=== PATIENT | female | born 1970 | race Caucasian/White ===

== ENCOUNTER → 2017-05-15 | Outpatient (CLI) | payer OTHER ==
[~2017-05-15] MED LIST: GADOBUTROL 10 MMOL/10 ML VIAL ONE
== END | disposition home or self-care (01) ==
LOC: CFH 09:01
PROVIDERS: ATTEND Internal Medicine
DX: K76.89 Other specified diseases of liver (principal)
CPT/HCPCS: 74183; A9585

== ENCOUNTER 2017-06-17 06:51 | Day surgery (SDC) | payer OTHER ==
[~2017-06-17] VITALS: Ht 160 cm; Wt 84.3 kg
[2017-06-17] MEDS ORDERED: LACTATED RINGERS 1,000 ML IV SCH (07:39)
[2017-06-17 07:42] VITALS: BP 117/83
[2017-06-17 08:21] LABS: HCG UR SG 1.019 (1.003-1.030)
[2017-06-17] MEDS ORDERED: FLUT1DIS5 IH (08:21)
[2017-06-17] MEDS ORDERED: LEVO150T5 PO (08:21)
[2017-06-17] MEDS ORDERED: CEFAZOLIN 1,000 MG ONE (09:05)
[2017-06-17] MEDS ORDERED: DEXAMETHASONE 4 MG/ML, 1ML ONE (09:05)
[2017-06-17] MEDS ORDERED: ONDANSETRON 2MG/ML, 2ML ONE (09:05)
[2017-06-17] MEDS ORDERED: PROPOFOL 10 MG/ML, 20ML ONE (09:05)
[2017-06-17] MEDS ORDERED: OXYcodone 5 MG/5 ML ORAL.SOL UDC PO PRN (09:30)
[2017-06-17] MEDS ORDERED: morphine SULFATE 10 MG/ML, 1ML IV PRN (09:30)
[2017-06-17] MEDS ORDERED: MIDAZOLAM 1 MG/ML, 2ML IV PRN (09:30)
[2017-06-17] MEDS ORDERED: ACETAMINOPHEN 325 MG TABLET PO PRN (09:30)
[2017-06-17] MEDS ORDERED: HYDROcodone/APAP 7.5-325MG/15ML UDC PO PRN (09:30)
[2017-06-17] MEDS ORDERED: FENTANYL PF 100 MCG/2ML IV PRN (09:30)
[2017-06-17] MEDS ORDERED: HYDROmorphone 1 MG/ML, 1ML IV PRN (09:30)
[2017-06-17] MEDS ORDERED: KETOROLAC 30 MG/1 ML IV PRN ×2 (09:30)
[2017-06-17] MEDS ORDERED: MEPERIDINE/PF 25MG/0.5ML IVPush PRN (09:30)
== END 2017-06-17 10:30 | disposition home or self-care (01) ==
LOC: OUT 06:51
PROVIDERS: ATTEND Internal Medicine
DX: C20 Malignant neoplasm of rectum (principal); Z85.850 Personal history of malignant neoplasm of thyroid; Z98.890 Other specified postprocedural states
CPT/HCPCS: 45341; 81025; J0690; J1100; J2405; J2704; J7120

== ENCOUNTER 2017-08-19 17:04 | Inpatient (IN) | payer OTHER ==
[~2017-08-19] VITALS: Ht 160 cm; Wt 83.8 kg
[~2017-08-19 17:04] MED LIST changes: +ALBU8.5H8 INH; +FLUT1DIS5 IH; -GADOBUTROL 10 MMOL/10 ML VIAL ONE; +LEVO150T5 PO; +OXYC-302 PO
[2017-08-19] MEDS ORDERED: ONDANSETRON 2MG/ML, 2ML IVPush ONE (17:30)
[2017-08-19] MEDS ORDERED: MORPHINE SULFATE 4 MG/ML, 1ML IVPush PRN ×2 (17:30→19:00)
[2017-08-19] MEDS ORDERED: SODIUM CHLORIDE 0.9% 1,000 ML IV ONE (17:50)
[2017-08-19 17:53] LABS: BASOPHILS # (AUTO) 0.05 x10^3/uL (0-0.1); BASOPHILS % (AUTO) 0 % (0-1); EOSINOPHILS # (AUTO) 0.39 x10^3/uL (0-0.4); EOSINOPHILS % (AUTO) 3 % (1-7); LYMPHOCYTES # (AUTO) 2.34 x10^3/uL (1-3.4); LYMPHOCYTES % (AUTO) 17 % (22-44); MD NO; MEAN CORPUSCULAR HEMOGLOBIN 30.5 pg (27.0-34.8); MEAN CORPUSCULAR HGB CONC 33.7 g/dL (32.4-35.8); MEAN CORPUSCULAR VOLUME 90.3 fL (80-100); MEAN PLATELET VOLUME 8.6 fL (7.4-10.4); MONOCYTES # (AUTO) 0.85 x10^3/uL (0.2-0.8); MONOCYTES % (AUTO) 6 % (2-9); NEUTROPHILS # (AUTO) 10.45 x10^3/uL (1.8-6.8); NEUTROPHILS % (AUTO) 74 % (42-75); PLATELET COUNT 397 x10^3/uL (130-400); RED BLOOD COUNT 5.55 x10^6/uL (3.82-5.3); RED CELL DISTRIBUTION WIDTH 13.7 % (9.6-15.2)
[2017-08-19] MEDS ORDERED: SODIUM CHLORIDE FLUSH 10ML SYR IVF ONE (18:00)
[2017-08-19] MEDS ORDERED: SODIUM CHLORIDE 0.9% 1,000ML IVBOLUS ONE (18:00)
[2017-08-19 18:06] LABS: ALANINE AMINOTRANSFERASE 76 U/L (12-78); ALBUMIN 3.9 g/dL (3.4-5.0); ANION GAP 10 mmol/L (5-15); CALCIUM 10.8 mg/dL (8.5-10.1); CHLORIDE 95 mmol/L (98-107)
[2017-08-19 18:07] LABS: ALKALINE PHOSPHATASE 65 U/L (45-117); BILIRUBIN,TOTAL 1.1 mg/dL (0.2-1.0); TOTAL PROTEIN 8.4 g/dL (6.4-8.2)
[2017-08-19] MEDS ORDERED: OMNIPAQUE 350 MG/ML, 100ML BOTTLE ONE (18:22)
[2017-08-19] MEDS ORDERED: LORazepam 2 MG/ML, 1ML IVPush STA (18:44)
[2017-08-19] MEDS ORDERED: D5%-0.45% NACL 1,000 ML IV ONE (18:58)
[2017-08-19] MEDS ORDERED: SODIUM CHLORIDE FLUSH 10ML SYR IVF PRN (19:00)
[2017-08-19] MEDS ORDERED: LORazepam 2 MG/ML, 1ML ONE (19:43)
[2017-08-19 20:15] VITALS: BP 125/83
[2017-08-19] MEDS: CALCIUM CARBONATE 500 MG TABLET PO PRN (21:56)
[2017-08-19] MEDS ORDERED: ONDANSETRON 2MG/ML, 2ML IV PRN (22:00)
[2017-08-19] MEDS: D5%-0.45NACL+KCL 20MEQ 1,000 ML IV SCH (22:54)
[2017-08-19] MEDS: MORPHINE SULFATE 4 MG/ML, 1ML IV PRN (23:03)
[2017-08-20 01:43] VITALS: BP 125/83
[2017-08-20 03:28] VITALS: BP 124/84
[2017-08-20 06:52] VITALS: BP 123/81
[2017-08-20] MEDS: D5%-0.45NACL+KCL 20MEQ 1,000 ML IV SCH ×2 (10:58→21:18)
[2017-08-20] MEDS: ENOXAPARIN 40 MG/0.4 ML SQ SCH (11:37)
[2017-08-20] MEDS: LORazepam 2 MG/ML, 1ML IVPush PRN (11:37)
[2017-08-20] MEDS ORDERED: ALBUTEROL SULFATE IH PRN (12:00)
[2017-08-20 14:25] VITALS: BP 125/80
[2017-08-20 18:08] LABS: MICROSCOPIC INDICATED
[2017-08-20 18:20] LABS: CULTURE INDICATED? NO
[2017-08-20 19:46] VITALS: BP 126/83
[2017-08-20] MEDS: MORPHINE SULFATE 4 MG/ML, 1ML IV PRN (20:25)
[2017-08-21 01:38] VITALS: BP 108/71
[2017-08-21 05:29] LABS: BASOPHILS # (AUTO) 0.04 x10^3/uL (0-0.1); BASOPHILS % (AUTO) 0 % (0-1); EOSINOPHILS # (AUTO) 0.48 x10^3/uL (0-0.4); EOSINOPHILS % (AUTO) 5 % (1-7); LYMPHOCYTES # (AUTO) 1.79 x10^3/uL (1-3.4); LYMPHOCYTES % (AUTO) 18 % (22-44); MD NO; MEAN CORPUSCULAR HEMOGLOBIN 30.6 pg (27.0-34.8); MEAN CORPUSCULAR HGB CONC 34.1 g/dL (32.4-35.8); MEAN CORPUSCULAR VOLUME 89.8 fL (80-100); MEAN PLATELET VOLUME 8.1 fL (7.4-10.4); MONOCYTES % (AUTO) 8 % (2-9); NEUTROPHILS # (AUTO) 7.09 x10^3/uL (1.8-6.8); NEUTROPHILS % (AUTO) 70 % (42-75); PLATELET COUNT 335 x10^3/uL (130-400); RED BLOOD COUNT 4.48 x10^6/uL (3.82-5.3); RED CELL DISTRIBUTION WIDTH 13.6 % (9.6-15.2)
[2017-08-21 05:33] LABS: CHLORIDE 101 mmol/L (98-107)
[2017-08-21 05:44] LABS: ALANINE AMINOTRANSFERASE 84 U/L (12-78); ALKALINE PHOSPHATASE 51 U/L (45-117); ANION GAP 8 mmol/L (5-15); BILIRUBIN,TOTAL 1.1 mg/dL (0.2-1.0); CALCIUM 9.1 mg/dL (8.5-10.1); CREATININE 0.74 mg/dL (0.55-1.02); TOTAL PROTEIN 6.5 g/dL (6.4-8.2)
[2017-08-21] MEDS: LEVOTHYROXINE 150 MCG TABLET PO SCH (05:52)
[2017-08-21] MEDS: D5%-0.45NACL+KCL 20MEQ 1,000 ML IV SCH (06:17)
[2017-08-21 08:06] VITALS: BP 125/84
[2017-08-21] MEDS: FLUTICASONE/VILANTEROL 200-25MCG/INH INH SCH (09:00)
[2017-08-21] MEDS: SODIUM CHLORIDE FLUSH 10ML SYR IVF SCH ×2 (09:00→20:34)
[2017-08-21] MEDS: ENOXAPARIN 40 MG/0.4 ML SQ SCH (11:30)
[2017-08-21 13:33] VITALS: BP 121/77
[2017-08-21 19:00] VITALS: BP 120/81
[2017-08-21] MEDS: MORPHINE SULFATE 4 MG/ML, 1ML IV PRN (21:16)
[2017-08-22 01:11] VITALS: BP 104/68
[2017-08-22] MEDS: LEVOTHYROXINE 150 MCG TABLET PO SCH (05:26)
[2017-08-22 07:11] VITALS: BP 105/74
[2017-08-22] MEDS: FLUTICASONE/VILANTEROL 200-25MCG/INH INH SCH (09:00)
[2017-08-22] MEDS: SODIUM CHLORIDE FLUSH 10ML SYR IVF SCH ×2 (10:32→20:52)
[2017-08-22] MEDS: METOCLOPRAMIDE 5 MG/ML, 2ML IV SCH ×3 (10:32→23:00)
[2017-08-22] MEDS: ENOXAPARIN 40 MG/0.4 ML SQ SCH (11:43)
[2017-08-22] MEDS: SIMETHICONE 80 MG CHEW TAB PO PRN ×2 (13:00→18:39)
[2017-08-22 14:18] VITALS: BP 106/71
[2017-08-22] MEDS ORDERED: ACETAMINOPHEN 325 MG TABLET PO PRN (14:30)
[2017-08-22] MEDS: LORazepam 2 MG/ML, 1ML IVPush PRN ×2 (16:29→23:00)
[2017-08-22 21:12] VITALS: BP 132/79
[2017-08-23 03:16] VITALS: BP 111/77
[2017-08-23] MEDS: SIMETHICONE 80 MG CHEW TAB PO PRN (03:37)
[2017-08-23] MEDS: CALCIUM CARBONATE 500 MG TABLET PO PRN (04:15)
[2017-08-23 05:14] LABS: BASOPHILS # (AUTO) 0.03 x10^3/uL (0-0.1); BASOPHILS % (AUTO) 0 % (0-1); EOSINOPHILS % (AUTO) 1 % (1-7); LYMPHOCYTES # (AUTO) 1.37 x10^3/uL (1-3.4); LYMPHOCYTES % (AUTO) 15 % (22-44); MD NO; MEAN CORPUSCULAR HEMOGLOBIN 30.4 pg (27.0-34.8); MEAN CORPUSCULAR HGB CONC 34.1 g/dL (32.4-35.8); MEAN CORPUSCULAR VOLUME 89.2 fL (80-100); MEAN PLATELET VOLUME 8.6 fL (7.4-10.4); MONOCYTES # (AUTO) 0.96 x10^3/uL (0.2-0.8); MONOCYTES % (AUTO) 11 % (2-9); NEUTROPHILS # (AUTO) 6.45 x10^3/uL (1.8-6.8); NEUTROPHILS % (AUTO) 72 % (42-75); PLATELET COUNT 404 x10^3/uL (130-400); RED BLOOD COUNT 5.03 x10^6/uL (3.82-5.3); RED CELL DISTRIBUTION WIDTH 13.3 % (9.6-15.2)
[2017-08-23 05:45] LABS: ANION GAP 8 mmol/L (5-15); CALCIUM 10.7 mg/dL (8.5-10.1); CHLORIDE 95 mmol/L (98-107)
[2017-08-23 05:47] LABS: CREATININE 0.82 mg/dL (0.55-1.02)
[2017-08-23] MEDS: LEVOTHYROXINE 150 MCG TABLET PO SCH (06:00)
[2017-08-23] MEDS: LORazepam 2 MG/ML, 1ML IVPush PRN ×2 (06:16→19:50)
[2017-08-23] MEDS: METOCLOPRAMIDE 5 MG/ML, 2ML IV SCH ×4 (06:16→22:03)
[2017-08-23] MEDS ORDERED: BENZOCAINE AEROSOL SPRAY 20%, 60ML TP ONE (06:30)
[2017-08-23] MEDS: SODIUM CHLORIDE FLUSH 10ML SYR IVF SCH ×2 (07:53→19:52)
[2017-08-23 08:10] VITALS: BP 121/84
[2017-08-23] MEDS: FLUTICASONE/VILANTEROL 200-25MCG/INH INH SCH (08:41)
[2017-08-23] MEDS ORDERED: GASTROGRAFIN 120 ML SOLN PO ONE (10:55)
[2017-08-23] MEDS: ENOXAPARIN 40 MG/0.4 ML SQ SCH (11:37)
[2017-08-23 14:30] VITALS: BP 108/70
[2017-08-23] MEDS: D5%-0.45NACL+KCL 20MEQ 1,000 ML IV SCH (16:03)
[2017-08-23 20:00] VITALS: BP 143/86
[2017-08-24] MEDS: D5%-0.45NACL+KCL 20MEQ 1,000 ML IV SCH ×3 (01:35→20:26)
[2017-08-24 01:51] VITALS: BP 106/75
[2017-08-24] MEDS: LORazepam 2 MG/ML, 1ML IVPush PRN ×3 (04:30→23:02)
[2017-08-24] MEDS: METOCLOPRAMIDE 5 MG/ML, 2ML IV SCH ×4 (04:31→22:18)
[2017-08-24 05:23] LABS: BASOPHILS # (AUTO) 0.03 x10^3/uL (0-0.1); BASOPHILS % (AUTO) 0 % (0-1); EOSINOPHILS # (AUTO) 0.12 x10^3/uL (0-0.4); EOSINOPHILS % (AUTO) 1 % (1-7); LYMPHOCYTES # (AUTO) 1.88 x10^3/uL (1-3.4); LYMPHOCYTES % (AUTO) 20 % (22-44); MD NO; MEAN CORPUSCULAR HEMOGLOBIN 30.9 pg (27.0-34.8); MEAN CORPUSCULAR HGB CONC 34.3 g/dL (32.4-35.8); MEAN CORPUSCULAR VOLUME 90.1 fL (80-100); MEAN PLATELET VOLUME 8.7 fL (7.4-10.4); MONOCYTES # (AUTO) 1.04 x10^3/uL (0.2-0.8); MONOCYTES % (AUTO) 11 % (2-9); NEUTROPHILS # (AUTO) 6.55 x10^3/uL (1.8-6.8); NEUTROPHILS % (AUTO) 68 % (42-75); PLATELET COUNT 401 x10^3/uL (130-400); RED BLOOD COUNT 4.92 x10^6/uL (3.82-5.3); RED CELL DISTRIBUTION WIDTH 13.4 % (9.6-15.2)
[2017-08-24 05:31] LABS: CHLORIDE 96 mmol/L (98-107)
[2017-08-24 05:56] LABS: ANION GAP 10 mmol/L (5-15); CALCIUM 8.2 mg/dL (8.5-10.1); CREATININE 0.87 mg/dL (0.55-1.02)
[2017-08-24] MEDS: LEVOTHYROXINE 150 MCG TABLET PO SCH (07:49)
[2017-08-24 08:33] VITALS: BP 112/78
[2017-08-24] MEDS: SALMETEROL INH SCH (09:00)
[2017-08-24] MEDS: FLUTICASONE INH SCH (09:00)
[2017-08-24] MEDS: SODIUM CHLORIDE FLUSH 10ML SYR IVF SCH ×2 (10:33→20:33)
[2017-08-24] MEDS: ENOXAPARIN 40 MG/0.4 ML SQ SCH (12:03)
[2017-08-24 13:36] VITALS: BP 107/73
[2017-08-24 20:09] VITALS: BP 102/66
[2017-08-25 03:25] VITALS: BP 102/64
[2017-08-25] MEDS: D5%-0.45NACL+KCL 20MEQ 1,000 ML IV SCH ×3 (04:35→23:10)
[2017-08-25] MEDS: METOCLOPRAMIDE 5 MG/ML, 2ML IV SCH ×4 (04:35→22:51)
[2017-08-25 04:55] LABS: ANION GAP 6 mmol/L (5-15); CALCIUM 8.5 mg/dL (8.5-10.1); CHLORIDE 99 mmol/L (98-107); CREATININE 0.75 mg/dL (0.55-1.02)
[2017-08-25 05:01] LABS: BASOPHILS # (AUTO) 0.04 x10^3/uL (0-0.1); BASOPHILS % (AUTO) 1 % (0-1); EOSINOPHILS # (AUTO) 0.18 x10^3/uL (0-0.4); EOSINOPHILS % (AUTO) 2 % (1-7); LYMPHOCYTES # (AUTO) 1.63 x10^3/uL (1-3.4); LYMPHOCYTES % (AUTO) 19 % (22-44); MD NO; MEAN CORPUSCULAR HEMOGLOBIN 30.5 pg (27.0-34.8); MEAN CORPUSCULAR HGB CONC 33.7 g/dL (32.4-35.8); MEAN CORPUSCULAR VOLUME 90.6 fL (80-100); MEAN PLATELET VOLUME 8.4 fL (7.4-10.4); MONOCYTES # (AUTO) 0.96 x10^3/uL (0.2-0.8); MONOCYTES % (AUTO) 11 % (2-9); NEUTROPHILS % (AUTO) 68 % (42-75); PLATELET COUNT 362 x10^3/uL (130-400); RED BLOOD COUNT 4.51 x10^6/uL (3.82-5.3); RED CELL DISTRIBUTION WIDTH 13.3 % (9.6-15.2)
[2017-08-25] MEDS: LEVOTHYROXINE 150 MCG TABLET PO SCH (05:48)
[2017-08-25 07:27] VITALS: BP 103/69
[2017-08-25] MEDS: SODIUM CHLORIDE FLUSH 10ML SYR IVF SCH ×2 (08:46→22:52)
[2017-08-25] MEDS: SALMETEROL INH SCH (09:00)
[2017-08-25] MEDS: FLUTICASONE INH SCH (09:00)
[2017-08-25] MEDS: ENOXAPARIN 40 MG/0.4 ML SQ SCH (12:33)
[2017-08-25 13:50] VITALS: BP 108/73
[2017-08-25 20:01] VITALS: BP 117/66
[2017-08-25] MEDS: LORazepam 2 MG/ML, 1ML IVPush PRN (20:13)
[2017-08-26] MEDS: LORazepam 2 MG/ML, 1ML IVPush PRN ×2 (02:32→20:55)
[2017-08-26 02:41] VITALS: BP 106/71
[2017-08-26] MEDS: METOCLOPRAMIDE 5 MG/ML, 2ML IV SCH ×4 (04:37→22:38)
[2017-08-26 05:06] LABS: BASOPHILS # (AUTO) 0.04 x10^3/uL (0-0.1); BASOPHILS % (AUTO) 1 % (0-1); EOSINOPHILS # (AUTO) 0.18 x10^3/uL (0-0.4); EOSINOPHILS % (AUTO) 3 % (1-7); LYMPHOCYTES # (AUTO) 1.56 x10^3/uL (1-3.4); LYMPHOCYTES % (AUTO) 24 % (22-44); MD NO; MEAN CORPUSCULAR HEMOGLOBIN 30.6 pg (27.0-34.8); MEAN CORPUSCULAR HGB CONC 33.8 g/dL (32.4-35.8); MEAN CORPUSCULAR VOLUME 90.5 fL (80-100); MEAN PLATELET VOLUME 8.1 fL (7.4-10.4); MONOCYTES # (AUTO) 0.89 x10^3/uL (0.2-0.8); MONOCYTES % (AUTO) 14 % (2-9); NEUTROPHILS # (AUTO) 3.82 x10^3/uL (1.8-6.8); NEUTROPHILS % (AUTO) 59 % (42-75); PLATELET COUNT 365 x10^3/uL (130-400); RED BLOOD COUNT 4.24 x10^6/uL (3.82-5.3); RED CELL DISTRIBUTION WIDTH 13.1 % (9.6-15.2)
[2017-08-26 05:27] LABS: CHLORIDE 103 mmol/L (98-107)
[2017-08-26 06:17] LABS: ANION GAP 10 mmol/L (5-15); CALCIUM 8.7 mg/dL (8.5-10.1); CREATININE 0.79 mg/dL (0.55-1.02)
[2017-08-26] MEDS: LEVOTHYROXINE 150 MCG TABLET PO SCH (06:35)
[2017-08-26] MEDS: D5%-0.45NACL+KCL 20MEQ 1,000 ML IV SCH ×3 (06:35→22:39)
[2017-08-26 07:25] VITALS: BP 100/66
[2017-08-26] MEDS: SALMETEROL INH SCH (09:00)
[2017-08-26] MEDS: FLUTICASONE INH SCH (09:00)
[2017-08-26] MEDS: SODIUM CHLORIDE FLUSH 10ML SYR IVF SCH ×2 (10:47→20:55)
[2017-08-26 13:17] VITALS: BP 111/73
[2017-08-26] MEDS: ENOXAPARIN 40 MG/0.4 ML SQ SCH (13:20)
[2017-08-26 20:43] VITALS: BP 107/71
[2017-08-27 01:29] VITALS: BP 112/71
[2017-08-27] MEDS: METOCLOPRAMIDE 5 MG/ML, 2ML IV SCH ×4 (04:54→22:51)
[2017-08-27] MEDS: LEVOTHYROXINE 150 MCG TABLET PO SCH (06:35)
[2017-08-27] MEDS: D5%-0.45NACL+KCL 20MEQ 1,000 ML IV SCH ×3 (06:36→17:25)
[2017-08-27 07:24] VITALS: BP 109/72
[2017-08-27] MEDS ORDERED: SCOPOLAMINE PATCH, 1.5MG PATCH.TD72 TD ONE (07:30)
[2017-08-27] MEDS ORDERED: OxyconTIN ER 10 MG TAB.ER PO ONE (07:30)
[2017-08-27] MEDS ORDERED: ONDANSETRON ODT 8 MG PO ONE (07:30)
[2017-08-27] MEDS ORDERED: MIDAZOLAM 1 MG/ML, 2ML ONE (07:58)
[2017-08-27] MEDS ORDERED: BUPIVACAINE/PF 0.25% ONE (07:58)
[2017-08-27] MEDS ORDERED: FENTANYL PF 250 MCG/5ML ONE (07:59)
[2017-08-27] MEDS ORDERED: SUCCINYLCHOLINE 20 MG/ML, 10ML ONE ×2 (08:01→08:08)
[2017-08-27] MEDS ORDERED: ROCURONIUM 10MG/ML,5ML ONE (08:01)
[2017-08-27] MEDS ORDERED: PROPOFOL 10 MG/ML, 20ML ONE (08:01)
[2017-08-27] MEDS ORDERED: METRONIDAZOLE PMX 500MG/100ML 100 ML ONE (08:03)
[2017-08-27] MEDS ORDERED: DEXAMETHASONE 4 MG/ML, 1ML ONE (08:08)
[2017-08-27] MEDS ORDERED: CEFAZOLIN 1,000 MG ONE (08:08)
[2017-08-27] MEDS: SODIUM CHLORIDE FLUSH 10ML SYR IVF SCH ×2 (09:00→22:54)
[2017-08-27] MEDS: FLUTICASONE INH SCH (09:00)
[2017-08-27] MEDS: SALMETEROL INH SCH (09:00)
[2017-08-27] MEDS ORDERED: SUGAMMADEX 200 MG/2 ML IVPush ONE (09:18)
[2017-08-27] MEDS ORDERED: MORPHINE SULFATE 4 MG/ML, 1ML IVPush PRN (10:00)
[2017-08-27] MEDS ORDERED: hydrALAzine 20 MG/ML, 1ML IV PRN (10:00)
[2017-08-27] MEDS ORDERED: ALBUTEROL SULFATE 2.5 MG/3 ML NPPB PRN (10:00)
[2017-08-27] MEDS ORDERED: MEPERIDINE/PF 25MG/0.5ML IVPush PRN (10:00)
[2017-08-27] MEDS ORDERED: LABETALOL 5MG/ML, 20ML IV PRN (10:00)
[2017-08-27] MEDS ORDERED: ONDANSETRON ODT 8 MG PO PRN (10:00)
[2017-08-27] MEDS ORDERED: MIDAZOLAM 1 MG/ML, 2ML IV PRN (10:00)
[2017-08-27] MEDS ORDERED: OXYcodone 5 MG/5 ML ORAL.SOL UDC PO PRN (10:00)
[2017-08-27] MEDS ORDERED: PROMETHAZINE 25 MG/ML, 1ML IV PRN (10:00)
[2017-08-27] MEDS ORDERED: PROMETHAZINE 12.5 MG SUPP PR PRN (10:00)
[2017-08-27] MEDS ORDERED: FENTANYL PF 100 MCG/2ML ONE (10:03)
[2017-08-27] MEDS ORDERED: OXYcodone 5 MG/5 ML ORAL.SOL UDC ONE (10:04)
[2017-08-27] MEDS: FENTANYL PF 100 MCG/2ML IV PRN ×2 (10:05→10:20)
[2017-08-27 13:38] VITALS: BP 111/63
[2017-08-27] MEDS ORDERED: DIPHENHYDRAMINE 50 MG/ML, 1ML IVPush PRN (15:30)
[2017-08-27] MEDS ORDERED: OXYcodone IR 5MG TABLET PO PRN (15:30)
[2017-08-27] MEDS ORDERED: HYDROmorphone 1 MG/ML, 1ML IVPush PRN (15:30)
[2017-08-27] MEDS ORDERED: LORazepam 1MG TABLET PO PRN (15:30)
[2017-08-27] MEDS ORDERED: LORazepam 2 MG/ML, 1ML IVPush PRN (15:30)
[2017-08-27] MEDS ORDERED: ONDANSETRON 2MG/ML, 2ML IV PRN (15:30)
[2017-08-27] MEDS ORDERED: CALCIUM CARBONATE 500 MG TAB.CHEW PO PRN (15:30)
[2017-08-27] MEDS ORDERED: DIPHENHYDRAMINE 25 MG CAPSULE PO PRN (15:30)
[2017-08-27] MEDS ORDERED: DEXAMETHASONE 4 MG/ML, 1ML IVPush PRN (15:30)
[2017-08-27] MEDS: IBUPROFEN 800 MG TABLET PO SCH ×2 (17:24→22:50)
[2017-08-27] MEDS: ACETAMINOPHEN 500 MG TABLET PO SCH ×2 (17:25→22:50)
[2017-08-27 18:37] VITALS: BP 106/71
[2017-08-28 02:00] VITALS: BP 108/70
[2017-08-28] MEDS: ACETAMINOPHEN 500 MG TABLET PO SCH ×4 (04:27→21:07)
[2017-08-28] MEDS: METOCLOPRAMIDE 5 MG/ML, 2ML IV SCH ×4 (04:28→21:07)
[2017-08-28] MEDS: ENOXAPARIN 40 MG/0.4 ML SQ SCH (04:28)
[2017-08-28 05:16] LABS: BASOPHILS # (AUTO) 0.02 x10^3/uL (0-0.1); BASOPHILS % (AUTO) 0 % (0-1); EOSINOPHILS # (AUTO) 0.07 x10^3/uL (0-0.4); EOSINOPHILS % (AUTO) 1 % (1-7); LYMPHOCYTES # (AUTO) 1.28 x10^3/uL (1-3.4); LYMPHOCYTES % (AUTO) 16 % (22-44); MD NO; MEAN CORPUSCULAR HEMOGLOBIN 30.4 pg (27.0-34.8); MEAN CORPUSCULAR HGB CONC 33.8 g/dL (32.4-35.8); MEAN CORPUSCULAR VOLUME 89.7 fL (80-100); MEAN PLATELET VOLUME 7.8 fL (7.4-10.4); MONOCYTES # (AUTO) 0.26 x10^3/uL (0.2-0.8); MONOCYTES % (AUTO) 3 % (2-9); NEUTROPHILS % (AUTO) 79 % (42-75); PLATELET COUNT 497 x10^3/uL (130-400); RED BLOOD COUNT 4.19 x10^6/uL (3.82-5.3); RED CELL DISTRIBUTION WIDTH 13.3 % (9.6-15.2)
[2017-08-28 05:17] LABS: CHLORIDE 103 mmol/L (98-107)
[2017-08-28 05:22] LABS: ANION GAP 9 mmol/L (5-15); CALCIUM 8.2 mg/dL (8.5-10.1); CREATININE 0.65 mg/dL (0.55-1.02)
[2017-08-28] MEDS: SIMETHICONE 80 MG CHEW TAB PO PRN ×2 (06:00→21:07)
[2017-08-28] MEDS: LEVOTHYROXINE 150 MCG TABLET PO SCH (06:08)
[2017-08-28 07:39] VITALS: BP 105/70
[2017-08-28] MEDS: IBUPROFEN 800 MG TABLET PO SCH ×3 (08:56→21:07)
[2017-08-28] MEDS: FLUTICASONE/VILANTEROL 200-25MCG/INH INH SCH (08:57)
[2017-08-28] MEDS: SODIUM CHLORIDE FLUSH 10ML SYR IVF SCH ×2 (08:57→21:08)
[2017-08-28] MEDS: D5%-0.45NACL+KCL 20MEQ 1,000 ML IV SCH (11:30)
[2017-08-28 13:24] VITALS: BP 105/69
[2017-08-28 20:28] VITALS: BP 109/73
[2017-08-29 01:36] VITALS: BP 108/71
[2017-08-29] MEDS: METOCLOPRAMIDE 5 MG/ML, 2ML IV SCH ×4 (04:48→22:36)
[2017-08-29] MEDS: ENOXAPARIN 40 MG/0.4 ML SQ SCH (04:49)
[2017-08-29] MEDS: ACETAMINOPHEN 500 MG TABLET PO SCH ×4 (04:49→21:08)
[2017-08-29 06:15] LABS: CHLORIDE 102 mmol/L (98-107)
[2017-08-29] MEDS: LEVOTHYROXINE 150 MCG TABLET PO SCH (06:21)
[2017-08-29 06:26] LABS: BASOPHILS # (AUTO) 0.02 x10^3/uL (0-0.1); BASOPHILS % (AUTO) 0 % (0-1); EOSINOPHILS # (AUTO) 0.17 x10^3/uL (0-0.4); EOSINOPHILS % (AUTO) 1 % (1-7); LYMPHOCYTES # (AUTO) 1.32 x10^3/uL (1-3.4); LYMPHOCYTES % (AUTO) 11 % (22-44); MD NO; MEAN CORPUSCULAR HEMOGLOBIN 30.7 pg (27.0-34.8); MEAN CORPUSCULAR HGB CONC 34.2 g/dL (32.4-35.8); MEAN CORPUSCULAR VOLUME 89.9 fL (80-100); MEAN PLATELET VOLUME 8.1 fL (7.4-10.4); MONOCYTES # (AUTO) 0.74 x10^3/uL (0.2-0.8); MONOCYTES % (AUTO) 6 % (2-9); NEUTROPHILS # (AUTO) 10.13 x10^3/uL (1.8-6.8); NEUTROPHILS % (AUTO) 82 % (42-75); PLATELET COUNT 435 x10^3/uL (130-400); RED BLOOD COUNT 4.02 x10^6/uL (3.82-5.3); RED CELL DISTRIBUTION WIDTH 13.5 % (9.6-15.2)
[2017-08-29 07:25] LABS: CREATININE 0.52 mg/dL (0.55-1.02)
[2017-08-29] MEDS: D5%-0.45NACL+KCL 20MEQ 1,000 ML IV SCH (07:30)
[2017-08-29 07:48] LABS: ANION GAP 8 mmol/L (5-15)
[2017-08-29 07:58] VITALS: BP 99/68
[2017-08-29] MEDS: FLUTICASONE/VILANTEROL 200-25MCG/INH INH SCH (09:00)
[2017-08-29] MEDS: IBUPROFEN 800 MG TABLET PO SCH ×3 (09:28→21:07)
[2017-08-29] MEDS: SODIUM CHLORIDE FLUSH 10ML SYR IVF SCH ×2 (09:29→21:08)
[2017-08-29 14:30] VITALS: BP 102/58
[2017-08-29 16:59] VITALS: BP 104/64
[2017-08-29 19:41] VITALS: BP 99/58
[2017-08-30 02:29] VITALS: BP 105/68
[2017-08-30] MEDS: D5%-0.45NACL+KCL 20MEQ 1,000 ML IV SCH (03:30)
[2017-08-30] MEDS: ACETAMINOPHEN 500 MG TABLET PO SCH ×2 (04:27→09:23)
[2017-08-30] MEDS: ENOXAPARIN 40 MG/0.4 ML SQ SCH (04:27)
[2017-08-30] MEDS: METOCLOPRAMIDE 5 MG/ML, 2ML IV SCH ×2 (04:28→10:30)
[2017-08-30 05:12] LABS: BASOPHILS # (AUTO) 0.04 x10^3/uL (0-0.1); BASOPHILS % (AUTO) 0 % (0-1); EOSINOPHILS # (AUTO) 0.17 x10^3/uL (0-0.4); EOSINOPHILS % (AUTO) 2 % (1-7); LYMPHOCYTES # (AUTO) 1.09 x10^3/uL (1-3.4); LYMPHOCYTES % (AUTO) 11 % (22-44); MD NO; MEAN CORPUSCULAR HEMOGLOBIN 30.3 pg (27.0-34.8); MEAN CORPUSCULAR HGB CONC 33.6 g/dL (32.4-35.8); MEAN CORPUSCULAR VOLUME 90.3 fL (80-100); MEAN PLATELET VOLUME 7.6 fL (7.4-10.4); MONOCYTES # (AUTO) 0.72 x10^3/uL (0.2-0.8); MONOCYTES % (AUTO) 7 % (2-9); NEUTROPHILS # (AUTO) 8.36 x10^3/uL (1.8-6.8); NEUTROPHILS % (AUTO) 81 % (42-75); PLATELET COUNT 450 x10^3/uL (130-400); RED BLOOD COUNT 3.65 x10^6/uL (3.82-5.3); RED CELL DISTRIBUTION WIDTH 13.7 % (9.6-15.2)
[2017-08-30 05:23] LABS: ANION GAP 8 mmol/L (5-15); CALCIUM 7.7 mg/dL (8.5-10.1); CHLORIDE 103 mmol/L (98-107)
[2017-08-30 05:24] LABS: CREATININE 0.62 mg/dL (0.55-1.02)
[2017-08-30] MEDS: LEVOTHYROXINE 150 MCG TABLET PO SCH (06:12)
[2017-08-30 07:23] VITALS: BP 103/66
[2017-08-30] MEDS: FLUTICASONE/VILANTEROL 200-25MCG/INH INH SCH (09:00)
[2017-08-30] MEDS: IBUPROFEN 800 MG TABLET PO SCH (09:23)
[2017-08-30] MEDS: SODIUM CHLORIDE FLUSH 10ML SYR IVF SCH (09:24)
== END 2017-08-30 14:08 | disposition home health service (06) | DRG 348 ==
LOC: ED 19:06 → EDIP 19:16 → 4NOR 20:00
PROVIDERS: ADMIT Surgery; ATTEND Surgery
PROC: 0DBB4ZZ Excision of Ileum, Percutaneous Endoscopic Approach (ICD-10-PCS; principal; 2017-08-27 08:00)
DX: K94.13 Enterostomy malfunction (principal); K56.601 Complete intestinal obstruction, unspecified as to cause; E86.0 Dehydration; Y83.8 Other surgical procedures as the cause of abnormal reaction of the patient, or of later complication, without mention of misadventure at the time of the procedure; F32.9 Major depressive disorder, single episode, unspecified; F41.9 Anxiety disorder, unspecified; Z93.3 Colostomy status; Z85.048 Personal history of other malignant neoplasm of rectum, rectosigmoid junction, and anus
CPT/HCPCS: 36415; 74177; 74270; 80048; 80053; 81001; 83605; 83690; 85025; 88304; 96361; 96374; J0690; J1100; J1170; J1650; J2250; J2704; J3010; J3490; Q0162; Q9963; Q9967; J0330; J2060; J2765; J3480; J7030

== ENCOUNTER → 2019-06-01 | Outpatient (CLI) | payer OTHER ==
[~2019-06-01] MED LIST changes: +OMNIPAQUE 350 MG/ML, 100ML BOTTLE ONE
== END | disposition home or self-care (01) ==
LOC: CFH 12:38
PROVIDERS: ATTEND Surgery
DX: K56.600 Partial intestinal obstruction, unspecified as to cause (principal); D18.09 Hemangioma of other sites; M41.86 Other forms of scoliosis, lumbar region
CPT/HCPCS: 74177; Q9967